=== PATIENT | male | born 1940 | race African-American/Black ===

== ENCOUNTER 2017-09-16 13:37 | Inpatient (IN) ==
[2017-09-16] MEDS ORDERED: ASPIRIN 325 MG TABLET PO STA (14:18)
[2017-09-16] MEDS ORDERED: ASPIRIN 325 MG TABLET ONE (14:43)
[2017-09-16 14:55] LABS: Apearance,Urine CLEAR (Clear); Bilirubin,Urine Negative (Negative); Blood, Urine Negative (Negative); Glucose,Urine (UA) Negative (Negative); Hyaline Casts,Urine 14 /LPF (0-3); Ketones,Urine Negative (Negative); Mucus,Urine Occasional /LPF (Occasional); Nitrite,Urine Negative (Negative); Protein,Urine Negative; RBC,Urine 1 /HPF (0-4); Squamous Epithelial Cell,Urine Occasional /HPF (0-10); Urine Color Yellow (Yellow); Urine Specific Gravity 1.008 (1.001-1.035); Urine Urobilinogen < 2.0 EU/DL (0.2-1.0); WBC,Urine 10 /HPF (0-6)
[2017-09-16] MEDS ORDERED: hydrALAZINE 20 MG/1 ML VIAL IV STA (15:04)
[2017-09-16 15:17] LABS: INR 1.3; PT Patient Result 13.9 SECS; Partial Thromboplastin Time 32.2 SECS (0-40)
[2017-09-16 15:20] LABS: Albumin 3.4 G/DL (3.4-5.0); Bilirubin,Total 0.5 MG/DL (0.2-1.0); Calcium 8.9 MG/DL (8.5-10.1); Magnesium 1.7 MG/DL (1.8-2.4); Osmolality,Calculated 278.7 MOS/KG (273-304); Total Protein 6.9 G/DL (6.4-8.3)
[2017-09-16 15:26] LABS: Potassium 2.3 MMOL/L (3.5-5.1)
[2017-09-16] MEDS ORDERED: POTASSIUM BICARB EFFERVESCENT 25 MEQ TABLET PO ONE ×2 (15:45→19:30)
[2017-09-16 15:46] LABS: Basophils # 0.1 10*3/uL (0.0-0.2); Basophils % 0.6 % (0.0-0.8); Eosinophils # 0.8 10*3/uL (0.0-0.87); Eosinophils % 6.7 % (0.00-10.9); Hematocrit 43.7 VOL% (42.0-52.0); Hemoglobin 15.7 GM/DL (14.0-18.0); Immature Granulocytes % 0.4 %; Immature Granulocytes Absolute 0.05 #; Lymphocytes # 2.8 10*3/uL (1.4-4.0); Lymphocytes % 22.7 % (21.2-54.2); Mean Corpuscular HGB Conc 35.9 GM/DL (32-36); Mean Corpuscular Hemoglobin 29 PG (27-34); Mean Platelet Volume 9.9 FL (9.6-12.0); Monocytes % 7.7 % (1.7-12.7); Neutrophils # 7.7 10*3/uL (1.4-7.4); Neutrophils % 61.9 % (38.7-73.9); Platelet Count 347 T/CUMM (130-400); Red Blood Count 5.46 MC/CUMM (3.8-5.5); White Blood Count 12.4 T/CUMM (4-12)
[2017-09-16] MEDS ORDERED: LEVOFLOXACIN INJ 750 MG in PREMIX 1 EACH IV STA (16:34)
[2017-09-16] MEDS ORDERED: DOCUSATE SODIUM 100 MG CAPSULE PO PRN (17:29)
[2017-09-16] MEDS ORDERED: diphenhydrAMINE CAP 25 MG CAPSULE PO PRN (17:29)
[2017-09-16] MEDS ORDERED: MORPHINE 10 MG/1 ML VIAL IV PRN (17:29)
[2017-09-16] MEDS ORDERED: guaiFENesin/DM ER 600-30 MG TABLET PO PRN (17:29)
[2017-09-16] MEDS ORDERED: ONDANSETRON 4 MG/2 ML VIAL IV PRN (17:29)
[2017-09-16] MEDS ORDERED: ACETAMINOPHEN 325 MG TABLET PO PRN (17:29)
[2017-09-16] MEDS ORDERED: ENOXAPARIN 40 MG/0.4 ML SYRINGE SUBCUT SCH (17:30)
[2017-09-16] MEDS ORDERED: EYE WASH SOLN 118 ML BOTTLE LEFT EYE PRN (17:36)
[2017-09-16] MEDS ORDERED: hydrALAZINE 20 MG/1 ML VIAL ONE (18:07)
[2017-09-16] MEDS: SODIUM CHLORIDE 0.9% 1,000 ML IV SCH (18:14)
[2017-09-16 18:54] LABS: Troponin I Only 0.018 NG/ML (0.00-0.045)
[2017-09-16] MEDS ORDERED: ALBUTEROL 2.5 MG/3 ML NEB RESP TX PRN (19:24)
[2017-09-16] MEDS: APIXABAN 5 MG TABLET PO SCH (20:37)
[2017-09-16] MEDS: POTASSIUM CHLORIDE 20 MEQ TABLET PO SCH (20:37)
[2017-09-16] MEDS: GENTAMICIN 0.3% OPH SOLN 5 ML BOTTLE LEFT EYE SCH (21:33)
[2017-09-17] MEDS: POTASSIUM CHLORIDE 20 MEQ TABLET PO SCH ×2 (01:05→04:35)
[2017-09-17] MEDS: GENTAMICIN 0.3% OPH SOLN 5 ML BOTTLE LEFT EYE SCH ×4 (04:34→21:24)
[2017-09-17 06:57] LABS: Basophils # 0.1 10*3/uL (0.0-0.2); Basophils % 0.7 % (0.0-0.8); Eosinophils # 0.6 10*3/uL (0.0-0.87); Eosinophils % 6.4 % (0.00-10.9); Hematocrit 40.4 VOL% (42.0-52.0); Hemoglobin 14.1 GM/DL (14.0-18.0); Immature Granulocytes % 0.3 %; Immature Granulocytes Absolute 0.03 #; Lymphocytes # 2.7 10*3/uL (1.4-4.0); Lymphocytes % 29.6 % (21.2-54.2); Mean Corpuscular HGB Conc 34.9 GM/DL (32-36); Mean Corpuscular Hemoglobin 28 PG (27-34); Mean Corpuscular Volume 80.8 FL (87-102); Mean Platelet Volume 10.1 FL (9.6-12.0); Monocytes # 0.7 10*3/uL (0.11-0.8); Monocytes % 7.8 % (1.7-12.7); Neutrophils % 55.2 % (38.7-73.9); Platelet Count 339 T/CUMM (130-400); Red Cell Distribution Width 14.2 % (9.3-17.3); White Blood Count 9.1 T/CUMM (4-12)
[2017-09-17 07:23] LABS: Calcium 8.3 MG/DL (8.5-10.1); Magnesium 1.7 MG/DL (1.8-2.4); Osmolality,Calculated 281.3 MOS/KG (273-304); Potassium 3.4 MMOL/L (3.5-5.1); Risk Ratio 3.02; VLDL CHOLESTEROL 14.4 MG/DL
[2017-09-17] MEDS ORDERED: DILTIAZEM HCL 90 MG PO SCH (09:00)
[2017-09-17] MEDS ORDERED: POTASSIUM CHLORIDE 20 MEQ TABLET PO ONE (09:23)
[2017-09-17] MEDS: CYANOCOBALAMIN 500 MCG TABLET PO SCH (09:26)
[2017-09-17] MEDS: POTASSIUM CHLORIDE 20 MEQ TABLET PO PRN (09:26)
[2017-09-17] MEDS: APIXABAN 5 MG TABLET PO SCH ×2 (09:26→20:45)
[2017-09-17] MEDS: PANTOPRAZOLE 40 MG TABLET PO SCH (09:26)
[2017-09-17] MEDS: cefTRIAXone 1,000 MG in SYRINGE 1 EACH IV SCH (09:27)
[2017-09-17] MEDS: SODIUM CHLORIDE 0.9% 1,000 ML IV SCH ×2 (09:38→20:47)
[2017-09-17] MEDS: MAGNESIUM OXIDE 400 MG TABLET PO SCH ×2 (12:19→20:45)
[2017-09-17] MEDS ORDERED: LEVOFLOXACIN INJ 500 MG in PREMIX 1 EACH IV SCH (21:00)
[2017-09-18] MEDS: GENTAMICIN 0.3% OPH SOLN 5 ML BOTTLE LEFT EYE SCH ×2 (03:42→10:30)
[2017-09-18 07:51] LABS: Calcium 8.2 MG/DL (8.5-10.1); Magnesium 1.9 MG/DL (1.8-2.4); Osmolality,Calculated 280.3 MOS/KG (273-304); Potassium 3.4 MMOL/L (3.5-5.1)
[2017-09-18] MEDS: APIXABAN 5 MG TABLET PO SCH (10:32)
[2017-09-18] MEDS: MAGNESIUM OXIDE 400 MG TABLET PO SCH (10:33)
[2017-09-18] MEDS: PANTOPRAZOLE 40 MG TABLET PO SCH (10:33)
[2017-09-18] MEDS: cefTRIAXone 1,000 MG in SYRINGE 1 EACH IV SCH (10:33)
[2017-09-18] MEDS: CYANOCOBALAMIN 500 MCG TABLET PO SCH (10:38)
[2017-09-18] MEDS: POTASSIUM CHLORIDE 20 MEQ TABLET PO PRN (10:53)
[2017-09-18 13:02] VITALS: BP 129/66
== END 2017-09-18 17:20 | disposition home health service (06) | DRG 689 ==
LOC: EDUNIT# → EDBD → N.ED 13:37 → N.EDINP 16:52 → N.5E 20:17
PROVIDERS: ADMIT Internal Medicine; ATTEND Internal Medicine

== ENCOUNTER 2019-03-03 14:38 | Observation (INO) ==
[2019-03-03 15:52] LABS: Basophils % 0.3 % (0.0-0.8); Eosinophils # 0.2 10*3/uL (0.0-0.87); Eosinophils % 1.8 % (0.00-10.9); Hematocrit 48.8 VOL% (42.0-52.0); Hemoglobin 16.6 GM/DL (14.0-18.0); Immature Granulocytes % 0.4 %; Immature Granulocytes Absolute 0.04 #; Lymphocytes # 2.5 10*3/uL (1.4-4.0); Lymphocytes % 24.2 % (21.2-54.2); Monocytes % 9.1 % (1.7-12.7); Neutrophils % 64.2 % (38.7-73.9); Platelet Count 295 T/CUMM (130-400); Red Blood Count 5.88 MC/CUMM (3.8-5.5); Red Cell Distribution Width 14.1 % (9.3-17.3); White Blood Count 10.4 T/CUMM (4-12)
[2019-03-03 16:01] LABS: INR 1.1; PT Patient Result 11.5 SECS
[2019-03-03 16:11] LABS: Albumin 3.8 G/DL (3.4-5.0); Bilirubin,Total 0.8 MG/DL (0.2-1.0); Calcium 9.6 MG/DL (8.5-10.1); Osmolality,Calculated 280.8 MOS/KG (273-304); Total Protein 6.7 G/DL (6.4-8.3)
[2019-03-03 16:12] LABS: Apearance,Urine CLEAR (Clear); Bilirubin,Urine Negative (Negative); Blood, Urine Negative (Negative); Glucose,Urine (UA) Negative (Negative); Hyaline Casts,Urine 10 /LPF (0-3); Ketones,Urine Negative (Negative); Mucus,Urine Occasional /LPF (Occasional); Nitrite,Urine Negative (Negative); Protein,Urine Negative; RBC,Urine 2 /HPF (0-4); Squamous Epithelial Cell,Urine Occasional /HPF (0-10); Urine Color Yellow (Yellow); Urine Specific Gravity 1.011 (1.001-1.035); Urine Urobilinogen < 2.0 EU/DL (0.2-1.0); WBC,Urine 9 /HPF (0-6)
[2019-03-03] MEDS ORDERED: cefTRIAXone 1,000 MG in SODIUM CHLORIDE 0.9% 100 ML IV STA (16:30)
[2019-03-03] MEDS ORDERED: ACETAMINOPHEN 325 MG TABLET PO PRN (17:05)
[2019-03-03] MEDS ORDERED: ONDANSETRON 4 MG/2 ML VIAL IV PRN (17:05)
[2019-03-03] MEDS ORDERED: LACTULOSE 20 GM/30 ML UDCUP PO ONE (17:45)
[2019-03-03] MEDS ORDERED: POTASSIUM CHLORIDE 20 MEQ TABLET PO ONE (17:48)
[2019-03-03] MEDS ORDERED: ALBUTEROL 2.5 MG/3 ML NEB RESP TX PRN (18:00)
[2019-03-03] MEDS ORDERED: MEROPENEM 1,000 MG in SODIUM CHLORIDE 0.9% 100 ML IV SCH (20:00)
[2019-03-03] MEDS: APIXABAN 5 MG TABLET PO SCH (21:30)
[2019-03-03] MEDS: MAGNESIUM OXIDE 400 MG TABLET PO SCH (21:30)
[2019-03-03] MEDS: SODIUM CHLORIDE 0.9% 1,000 ML IV SCH (21:30)
[2019-03-03 21:50] LABS: Folate 7.7 NG/ML (5.4-24.0); Vitamin B12 684 PG/ML (211-911)
[2019-03-04 03:55] LABS: Basophils % 0.3 % (0.0-0.8); Eosinophils # 0.3 10*3/uL (0.0-0.87); Hematocrit 43.4 VOL% (42.0-52.0); Hemoglobin 14.6 GM/DL (14.0-18.0); Immature Granulocytes % 0.3 %; Immature Granulocytes Absolute 0.02 #; Lymphocytes % 25.7 % (21.2-54.2); Mean Corpuscular HGB Conc 33.6 GM/DL (32-36); Mean Corpuscular Volume 84.3 FL (87-102); Mean Platelet Volume 10.2 FL (9.6-12.0); Monocytes % 9.3 % (1.7-12.7); Neutrophils % 60.4 % (38.7-73.9); Platelet Count 263 T/CUMM (130-400); Red Blood Count 5.15 MC/CUMM (3.8-5.5); White Blood Count 7.8 T/CUMM (4-12)
[2019-03-04 04:29] LABS: Bilirubin,Direct 0.11 MG/DL (0.0-0.20); Bilirubin,Indirect 0.3 MG/DL (0.0-1.0); Bilirubin,Total 0.4 MG/DL (0.2-1.0); Total Protein 5.5 G/DL (6.4-8.3)
[2019-03-04 04:39] LABS: Calcium 8.6 MG/DL (8.5-10.1); Osmolality,Calculated 284.4 MOS/KG (273-304); Risk Ratio 2.88; Thyroid Stimulating Hormone 0.321 uIU/ml (0.358-3.74); VLDL CHOLESTEROL 25.2 MG/DL
[2019-03-04] MEDS ORDERED: POTASSIUM CHLORIDE 20 MEQ TABLET PO ONE (07:14)
[2019-03-04] MEDS: SODIUM CHLORIDE 0.9% 1,000 ML IV SCH ×2 (08:05→23:44)
[2019-03-04] MEDS: cefTRIAXone 1,000 MG in SYRINGE 1 EACH IV SCH (08:05)
[2019-03-04] MEDS: MAGNESIUM OXIDE 400 MG TABLET PO SCH ×2 (08:06→21:36)
[2019-03-04] MEDS: CYANOCOBALAMIN 500 MCG TABLET PO SCH (08:06)
[2019-03-04] MEDS: DILTIAZEM CD 240 MG CAPSULE PO SCH (08:06)
[2019-03-04] MEDS: APIXABAN 5 MG TABLET PO SCH ×2 (08:06→21:36)
[2019-03-04] MEDS: PANTOPRAZOLE 40 MG TABLET PO SCH (08:06)
[2019-03-04] MEDS ORDERED: MAGNESIUM CITRATE 300 ML BOTTLE PO ONE (08:10)
[2019-03-04] MEDS ORDERED: diphenhydrAMINE CAP 25 MG CAPSULE PO ONE (09:25)
[2019-03-04 15:55] LABS: Calcium 8.6 MG/DL (8.5-10.1); Osmolality,Calculated 278.7 MOS/KG (273-304)
[2019-03-05 04:43] LABS: Basophils % 0.4 % (0.0-0.8); Eosinophils # 0.6 10*3/uL (0.0-0.87); Eosinophils % 6.4 % (0.00-10.9); Hematocrit 42.8 VOL% (42.0-52.0); Hemoglobin 14.1 GM/DL (14.0-18.0); Immature Granulocytes % 0.4 %; Immature Granulocytes Absolute 0.04 #; Lymphocytes # 2.5 10*3/uL (1.4-4.0); Lymphocytes % 27.5 % (21.2-54.2); Mean Corpuscular HGB Conc 32.9 GM/DL (32-36); Mean Corpuscular Volume 85.6 FL (87-102); Mean Platelet Volume 10.1 FL (9.6-12.0); Monocytes % 8.5 % (1.7-12.7); Neutrophils % 56.8 % (38.7-73.9); Platelet Count 284 T/CUMM (130-400); White Blood Count 9.2 T/CUMM (4-12)
[2019-03-05 05:01] LABS: Calcium 8.4 MG/DL (8.5-10.1); Osmolality,Calculated 282.3 MOS/KG (273-304)
[2019-03-05 05:16] LABS: Free T4 (Free Thyroxine) 1.03 NG/DL (0.76-1.46); Thyroid Stimulating Hormone 0.506 uIU/ml (0.358-3.74)
[2019-03-05 07:17] VITALS: BP 134/73
[2019-03-05] MEDS: cefTRIAXone 1,000 MG in SYRINGE 1 EACH IV SCH (08:16)
[2019-03-05] MEDS: CYANOCOBALAMIN 500 MCG TABLET PO SCH (08:17)
[2019-03-05] MEDS: MAGNESIUM OXIDE 400 MG TABLET PO SCH (08:17)
[2019-03-05] MEDS: APIXABAN 5 MG TABLET PO SCH (08:17)
[2019-03-05] MEDS: DILTIAZEM CD 240 MG CAPSULE PO SCH (08:17)
[2019-03-05] MEDS: PANTOPRAZOLE 40 MG TABLET PO SCH (08:17)
[2019-03-05] MEDS ORDERED: POTASSIUM CHLORIDE 20 MEQ TABLET PO ONE ×2 (08:27→08:29)
[2019-03-05] MEDS: SODIUM CHLORIDE 0.9% 1,000 ML IV SCH (10:52)
== END 2019-03-05 11:14 | disposition home health service (06) ==
LOC: N.ED 14:38 → N.EDINP 17:05 → INTOOBSV 17:07 → N.2E 17:57
PROVIDERS: ADMIT Internal Medicine; ATTEND Internal Medicine

== ENCOUNTER 2019-05-19 13:32 | Inpatient (IN) ==
[2019-05-19 14:36] LABS: Basophils # 0.1 10*3/uL (0.0-0.2); Basophils % 0.5 % (0.0-0.8); Eosinophils # 0.3 10*3/uL (0.0-0.87); Eosinophils % 1.9 % (0.00-10.9); Hematocrit 49.3 VOL% (42.0-52.0); Hemoglobin 17.2 GM/DL (14.0-18.0); Immature Granulocytes % 0.7 %; Immature Granulocytes Absolute 0.09 #; Lymphocytes # 2.3 10*3/uL (1.4-4.0); Lymphocytes % 17.6 % (21.2-54.2); Mean Corpuscular HGB Conc 34.9 GM/DL (32-36); Mean Corpuscular Volume 81.2 FL (87-102); Mean Platelet Volume 9.1 FL (9.6-12.0); Monocytes % 8.9 % (1.7-12.7); Neutrophils % 70.4 % (38.7-73.9); Platelet Count 401 T/CUMM (130-400); Red Blood Count 6.07 MC/CUMM (3.8-5.5); Red Cell Distribution Width 13.5 % (9.3-17.3); White Blood Count 13.2 T/CUMM (4-12)
[2019-05-19 14:50] LABS: INR 1.1; PT Patient Result 11.6 SECS (9.6-12.2); Partial Thromboplastin Time 28.4 SECS (20.8-36.0)
[2019-05-19 14:53] LABS: Albumin 3.3 G/DL (3.4-5.0); Bilirubin,Total 0.6 MG/DL (0.2-1.0); Calcium 9.5 MG/DL (8.5-10.1); Osmolality,Calculated 273.4 MOS/KG (273-304); Total Protein 6.6 G/DL (6.4-8.3)
[2019-05-19 15:06] LABS: Apearance,Urine CLEAR (Clear); Bilirubin,Urine Negative (Negative); Blood, Urine Negative (Negative); Glucose,Urine (UA) Negative (Negative); Hyaline Casts,Urine 17 /LPF (0-3); Ketones,Urine Negative (Negative); Mucus,Urine Occasional /LPF (Occasional); Nitrite,Urine Negative (Negative); Protein,Urine Negative; RBC,Urine 2 /HPF (0-4); Squamous Epithelial Cell,Urine Occasional /HPF (0-10); Urine Color Yellow (Yellow); Urine Specific Gravity 1.009 (1.001-1.035); Urine Urobilinogen < 2.0 EU/DL (0.2-1.0); WBC,Urine 11 /HPF (0-6)
[2019-05-19] MEDS ORDERED: POTASSIUM CHLORIDE RIDER 10 MEQ in PREMIX 1 EACH IV PRN (15:08)
[2019-05-19] MEDS: POTASSIUM CHLORIDE 20 MEQ TABLET PO PRN ×3 (16:02→18:06)
[2019-05-19 18:19] LABS: Calcium 9.4 MG/DL (8.5-10.1); Osmolality,Calculated 275.2 MOS/KG (273-304)
[2019-05-19] MEDS ORDERED: ONDANSETRON 4 MG/2 ML VIAL IV PRN (21:37)
[2019-05-19] MEDS ORDERED: MAGNESIUM SULF RIDER 2 GM in PREMIX 1 EACH IV STA (21:37)
[2019-05-19] MEDS ORDERED: ACETAMINOPHEN 325 MG TABLET PO PRN (21:37)
[2019-05-19] MEDS ORDERED: ALBUTEROL 2.5 MG/3 ML NEB RESP TX PRN (21:37)
[2019-05-19] MEDS ORDERED: cefTRIAXone 1,000 MG in SYRINGE 1 EACH IV SCH (22:00)
[2019-05-19] MEDS: APIXABAN 5 MG TABLET PO SCH (22:23)
[2019-05-19] MEDS: POTASSIUM CHLORIDE 20 MEQ TABLET PO SCH (22:23)
[2019-05-19] MEDS: SODIUM CHLOR 0.9% KCL 40 MEQ 40 MEQ/1,000 ML BAG IV SCH (22:24)
[2019-05-19 22:28] LABS: Thyroid Stimulating Hormone 0.625 uIU/ml (0.358-3.74)
[2019-05-19] MEDS: ALBUTEROL/IPRATROPIUM 3 ML NEB RESP TX SCH (23:30)
[2019-05-20] MEDS: POTASSIUM CHLORIDE 20 MEQ TABLET PO SCH ×2 (01:30→03:05)
[2019-05-20] MEDS: ALBUTEROL/IPRATROPIUM 3 ML NEB RESP TX SCH ×3 (02:05→11:49)
[2019-05-20 06:03] LABS: Basophils # 0.1 10*3/uL (0.0-0.2); Basophils % 0.5 % (0.0-0.8); Eosinophils # 0.2 10*3/uL (0.0-0.87); Eosinophils % 1.8 % (0.00-10.9); Hematocrit 46.2 VOL% (42.0-52.0); Hemoglobin 15.7 GM/DL (14.0-18.0); Immature Granulocytes % 0.4 %; Immature Granulocytes Absolute 0.04 #; Lymphocytes # 2.2 10*3/uL (1.4-4.0); Lymphocytes % 21.7 % (21.2-54.2); Mean Corpuscular Volume 83.2 FL (87-102); Mean Platelet Volume 9.5 FL (9.6-12.0); Monocytes % 8.7 % (1.7-12.7); Neutrophils % 66.9 % (38.7-73.9); Platelet Count 356 T/CUMM (130-400); Red Blood Count 5.55 MC/CUMM (3.8-5.5); Red Cell Distribution Width 13.9 % (9.3-17.3); White Blood Count 10.2 T/CUMM (4-12)
[2019-05-20 06:26] LABS: Calcium 8.6 MG/DL (8.5-10.1); Osmolality,Calculated 277.8 MOS/KG (273-304)
[2019-05-20] MEDS ORDERED: DILTIAZEM CD 240 MG CAPSULE PO SCH (09:00)
[2019-05-20] MEDS ORDERED: predniSONE 20 MG TABLET PO SCH (09:00)
[2019-05-20] MEDS: APIXABAN 5 MG TABLET PO SCH (09:14)
[2019-05-20] MEDS: POTASSIUM CHLORIDE 20 MEQ TABLET PO PRN (09:17)
[2019-05-20] MEDS: SODIUM CHLOR 0.9% KCL 40 MEQ 40 MEQ/1,000 ML BAG IV SCH (09:18)
[2019-05-20] MEDS ORDERED: cephALEXin 500 MG CAPSULE PO SCH (12:30)
[2019-05-20 16:27] VITALS: BP 124/65
== END 2019-05-20 16:05 | disposition home or self-care (01) | DRG 683 ==
LOC: EDBD → EDUNIT# → N.ED 13:32 → SUATTDRO 19:01 → N.EDINP 19:01 → N.5E 20:14
PROVIDERS: ADMIT Hospitalist; ATTEND Internal Medicine

== ENCOUNTER 2022-09-19 20:40 | Observation (INO) ==
[2022-09-19 21:30] LABS: Basophils # 0.1 10*3/uL (0.0-0.2); Basophils % 0.3 % (0.0-0.8); Eosinophils # 0.2 10*3/uL (0.0-0.87); Eosinophils % 0.8 % (0.00-10.9); Hematocrit 47.9 VOL% (42.0-52.0); Hemoglobin 15.6 GM/DL (14.0-18.0); Immature Granulocytes % 0.4 %; Immature Granulocytes Absolute 0.08 #; Lymphocytes % 11.2 % (21.2-54.2); Mean Corpuscular HGB Conc 32.6 GM/DL (32-36); Mean Corpuscular Volume 87.9 FL (87-102); Mean Platelet Volume 9.6 FL (9.6-12.0); Monocytes # 1.2 10*3/uL (0.11-0.8); Monocytes % 6.7 % (1.7-12.7); Neutrophils % 80.6 % (38.7-73.9); Platelet Count 315 T/CUMM (130-400); Red Blood Count 5.45 MC/CUMM (3.8-5.5); Red Cell Distribution Width 14.2 % (9.3-17.3); White Blood Count 18.2 T/CUMM (4-12)
[2022-09-19 21:42] LABS: Albumin 3.5 G/DL (3.4-5.0); Bilirubin,Total 0.5 MG/DL (0.20-1.00); Calcium 8.6 MG/DL (8.5-10.1); Osmolality,Calculated 277.5 MOS/KG (273-304); Total Protein 7.2 G/DL (6.4-8.2)
[2022-09-19 22:37] LABS: Urine Appearance Clear (Clear); Urine Color Yellow (Yellow); Urine pH 5.5 (4.5-8.0)
[2022-09-19 22:38] LABS: Bilirubin,Urine Negative (Negative); Blood, Urine Trace mg/dL (Negative); Glucose,Urine (UA) Negative (Negative); Ketones,Urine Negative (Negative); Nitrite,Urine Negative (Negative); Protein,Urine Negative (Negative); Urine Urobilinogen 0.2 eU/dL (<2.0)
[2022-09-19 22:40] LABS: Bacteria,Urine Occasional /HPF (Few); Mucus,Urine Occasional /LPF (Occasional); RBC,Urine 548 /HPF (0-4); Squamous Epithelial Cell,Urine Occasional /HPF (0-10)
[2022-09-19] MEDS ORDERED: cefTRIAXone 1,000 MG in SODIUM CHLORIDE 0.9% 100 ML IV STA (22:47)
[2022-09-19] MEDS ORDERED: hydrALAZINE 20 MG/1 ML VIAL IV PRN (23:37)
[2022-09-19] MEDS ORDERED: MORPHINE 2 MG/1 ML SYRINGE IV PRN (23:37)
[2022-09-19] MEDS ORDERED: ONDANSETRON 4 MG/2 ML VIAL IV PRN (23:37)
[2022-09-20] MEDS ORDERED: ALBUTEROL 2.5 MG/3 ML NEB RESP TX PRN (01:04)
[2022-09-20 01:51] LABS: Basophils % 0.2 % (0.0-0.8); Eosinophils # 0.2 10*3/uL (0.0-0.87); Eosinophils % 0.9 % (0.00-10.9); Hematocrit 43.9 VOL% (42.0-52.0); Hemoglobin 14.5 GM/DL (14.0-18.0); Immature Granulocytes % 0.4 %; Immature Granulocytes Absolute 0.07 #; Lymphocytes % 11.7 % (21.2-54.2); Mean Corpuscular Volume 86.8 FL (87-102); Mean Platelet Volume 9.7 FL (9.6-12.0); Monocytes # 1.4 10*3/uL (0.11-0.8); Neutrophils % 78.8 % (38.7-73.9); Platelet Count 298 T/CUMM (130-400); Red Blood Count 5.06 MC/CUMM (3.8-5.5); Red Cell Distribution Width 14.2 % (9.3-17.3); White Blood Count 17.2 T/CUMM (4-12)
[2022-09-20 02:15] LABS: Bilirubin,Total 0.6 MG/DL (0.20-1.00); Calcium 8.5 MG/DL (8.5-10.1); Osmolality,Calculated 277.5 MOS/KG (273-304); Risk Ratio 2.49; Thyroid Stimulating Hormone 0.304 uIU/ml (0.358-3.74); Total Protein 6.4 G/DL (6.4-8.2)
[2022-09-20] MEDS ORDERED: FINASTERIDE 5 MG TABLET PO SCH (09:00)
[2022-09-20] MEDS ORDERED: PSYLLIUM POWDER 3.7 GM/PACK PO SCH (09:00)
[2022-09-20] MEDS: APIXABAN 5 MG TABLET PO SCH ×2 (09:35→21:42)
[2022-09-20] MEDS: POTASSIUM CHLORIDE 20 MEQ TABLET PO SCH ×3 (09:35→21:41)
[2022-09-20] MEDS: FUROSEMIDE 40 MG TABLET PO SCH ×2 (09:36→22:48)
[2022-09-20] MEDS: PANTOPRAZOLE 40 MG TABLET PO SCH (09:36)
[2022-09-20] MEDS: METOPROLOL TARTRATE 25 MG TABLET PO SCH ×2 (09:36→21:42)
[2022-09-20] MEDS: DILTIAZEM CD 180 MG CAPSULE PO SCH (09:36)
[2022-09-20] MEDS ORDERED: MAGNESIUM HYDROXIDE SUSP 30 ML UDCUP PO ONE (15:53)
[2022-09-20] MEDS ORDERED: POLYETHYLENE GLYCOL POWDER 17 GM PACK PO ONE (15:57)
[2022-09-20] MEDS ORDERED: POLYETHYLENE GLYCOL POWDER 17 GM PACK PO SCH (21:00)
[2022-09-20] MEDS ORDERED: LACTULOSE 20 GM/30 ML UDCUP PO SCH (21:00)
[2022-09-20] MEDS ORDERED: ENOXAPARIN 40 MG/0.4 ML SYRINGE SUBCUT SCH (21:00)
[2022-09-20] MEDS ORDERED: LUBIPROSTONE 8 MCG CAPSULE PO SCH (21:00)
[2022-09-20] MEDS: DUTASTERIDE 0.5 MG CAPSULE PO SCH (21:41)
[2022-09-20] MEDS: DOCUSATE SODIUM 100 MG CAPSULE PO SCH (21:42)
[2022-09-20] MEDS: TAMSULOSIN 0.4 MG CAPSULE PO SCH (22:48)
[2022-09-21] MEDS: cefTRIAXone 1,000 MG in SODIUM CHLORIDE 0.9% 100 ML IV SCH (02:01)
[2022-09-21] MEDS: LATANOPROST 0.005% OPH SOLN 2.5 ML BOTTLE BOTH EYES SCH ×2 (04:34→20:39)
[2022-09-21 05:29] LABS: Basophils % 0.3 % (0.0-0.8); Eosinophils # 0.3 10*3/uL (0.0-0.87); Eosinophils % 2.2 % (0.00-10.9); Hematocrit 41.6 VOL% (42.0-52.0); Hemoglobin 13.6 GM/DL (14.0-18.0); Immature Granulocytes % 0.3 %; Immature Granulocytes Absolute 0.04 #; Lymphocytes # 1.8 10*3/uL (1.4-4.0); Lymphocytes % 15.8 % (21.2-54.2); Mean Corpuscular HGB Conc 32.7 GM/DL (32-36); Mean Corpuscular Volume 88.3 FL (87-102); Monocytes # 0.9 10*3/uL (0.11-0.8); Monocytes % 7.9 % (1.7-12.7); Neutrophils % 73.5 % (38.7-73.9); Platelet Count 283 T/CUMM (130-400); Red Blood Count 4.71 MC/CUMM (3.8-5.5); Red Cell Distribution Width 14.2 % (9.3-17.3); White Blood Count 11.6 T/CUMM (4-12)
[2022-09-21 05:56] LABS: Calcium 8.3 MG/DL (8.5-10.1); Osmolality,Calculated 281.3 MOS/KG (273-304); Potassium 4.2 MMOL/L (3.5-5.1)
[2022-09-21] MEDS: POTASSIUM CHLORIDE 20 MEQ TABLET PO SCH ×3 (08:17→20:34)
[2022-09-21] MEDS: POLYETHYLENE GLYCOL POWDER 17 GM PACK PO SCH ×4 (08:17→20:34)
[2022-09-21] MEDS: FUROSEMIDE 40 MG TABLET PO SCH ×2 (08:18→20:34)
[2022-09-21] MEDS: DOCUSATE SODIUM 100 MG CAPSULE PO SCH ×2 (08:18→20:33)
[2022-09-21] MEDS: DILTIAZEM CD 180 MG CAPSULE PO SCH (08:18)
[2022-09-21] MEDS: PANTOPRAZOLE 40 MG TABLET PO SCH (08:18)
[2022-09-21] MEDS: METOPROLOL TARTRATE 25 MG TABLET PO SCH ×2 (08:18→20:33)
[2022-09-21] MEDS: TAMSULOSIN 0.4 MG CAPSULE PO SCH ×2 (08:18→20:34)
[2022-09-21] MEDS: LINACLOTIDE 145 MCG CAPSULE PO SCH (08:19)
[2022-09-21] MEDS: DUTASTERIDE 0.5 MG CAPSULE PO SCH (20:33)
[2022-09-22] MEDS: cefTRIAXone 1,000 MG in SODIUM CHLORIDE 0.9% 100 ML IV SCH (01:55)
[2022-09-22 06:04] LABS: Calcium 8.6 MG/DL (8.5-10.1); Osmolality,Calculated 275.7 MOS/KG (273-304); Potassium 4.1 MMOL/L (3.5-5.1)
[2022-09-22] MEDS: DILTIAZEM CD 180 MG CAPSULE PO SCH (08:26)
[2022-09-22] MEDS: POTASSIUM CHLORIDE 20 MEQ TABLET PO SCH (08:26)
[2022-09-22] MEDS: PANTOPRAZOLE 40 MG TABLET PO SCH (08:26)
[2022-09-22] MEDS: METOPROLOL TARTRATE 25 MG TABLET PO SCH (08:26)
[2022-09-22] MEDS: TAMSULOSIN 0.4 MG CAPSULE PO SCH (08:26)
[2022-09-22] MEDS: FUROSEMIDE 40 MG TABLET PO SCH (08:26)
[2022-09-22] MEDS: DOCUSATE SODIUM 100 MG CAPSULE PO SCH (08:26)
[2022-09-22] MEDS: LINACLOTIDE 145 MCG CAPSULE PO SCH (08:27)
[2022-09-22 08:46] LABS: Basophils % 0.5 % (0.0-0.8); Eosinophils # 0.4 10*3/uL (0.0-0.87); Eosinophils % 4.8 % (0.00-10.9); Hematocrit 43.1 VOL% (42.0-52.0); Hemoglobin 14.1 GM/DL (14.0-18.0); Immature Granulocytes % 0.2 %; Immature Granulocytes Absolute 0.02 #; Lymphocytes # 1.4 10*3/uL (1.4-4.0); Lymphocytes % 15.8 % (21.2-54.2); Mean Corpuscular HGB Conc 32.7 GM/DL (32-36); Mean Corpuscular Volume 88.7 FL (87-102); Mean Platelet Volume 10.5 FL (9.6-12.0); Monocytes # 0.8 10*3/uL (0.11-0.8); Neutrophils % 69.7 % (38.7-73.9); Platelet Count 283 T/CUMM (130-400); Red Blood Count 4.86 MC/CUMM (3.8-5.5); Red Cell Distribution Width 14.1 % (9.3-17.3); White Blood Count 8.8 T/CUMM (4-12)
[2022-09-22] MEDS: POLYETHYLENE GLYCOL POWDER 17 GM PACK PO SCH (09:51)
[2022-09-22 11:34] VITALS: BP 126/76
== END 2022-09-22 13:20 | disposition home health service (06) ==
LOC: N.ED 20:40 → INTOOBSV 23:37 → N.EDINP 23:37 → SUATTDRO 23:37 → N.3E 09-20 00:50
PROVIDERS: ADMIT Hospitalist; ATTEND Hospitalist